=== PATIENT | male | born 1990 ===

== ENCOUNTER 2017-12-02 21:00 | Emergency (ER) | payer SELFPAY ==
[2017-12-02] MEDS ORDERED: Sulfacetamide 10 % OPTH.SOL BOTH EYES ONE (22:00)
--- NOTE | 2017-12-02 22:03 | ED ---
Throat Pain/Nasal Congestion - HPI Summary HPI Summary: 27 yr old male with bilateral yellow eye drainage for four days. He states at night he wakes up with crusty yellow eye drainage. He usually wears contact lenses, but he has not been wearing them because thought had pink eye. he has no eye pain, no FB sensation, no change in his vision. He is wearing his glasses now. - History of Current Complaint Chief Complaint: UCEye Time Seen by Provider: 12/02/17 21:46 - Allergies/Home Medications Allergies/Adverse Reactions: Allergies Allergy/AdvReac Type Severity Reaction Status Date / Time No Known Allergies Allergy Verified 12/02/17 21:45 Home Medications: Home Medications Omeprazole CAP* [Prilosec CAP* 20 MG] 20 mg PO DAILY 12/02/17 [History Confirmed 12/02/17] PMH/Surg Hx/FS Hx/Imm Hx Previously Healthy: Yes Infectious Disease History: No Infectious Disease History: Denies: Traveled Outside the [place] in Last 30 Days - Family History Known Family History: Positive: None - Social History Occupation: Employed Full-time Lives: With Family Alcohol Use: Occasionally Substance Use Type: Reports: None Smoking Status (MU): Never Smoked Tobacco Review of Systems Constitutional: Negative Positive: Drainage. Negative: Photophobia, Blurred Vision All Other Systems Reviewed And Are Negative: Yes Physical Exam Triage Information Reviewed: Yes Vital Signs On Initial Exam: Initial Vitals Temp Pulse Resp BP Pulse Ox 97.5 F 72 14 136/75 98 12/02/17 21:42 12/02/17 21:42 12/02/17 21:42 12/02/17 21:42 12/02/17 21:42 Vital Signs Reviewed: Yes Appearance: Positive: Well-Appearing, No Pain Distress Skin: Positive: Warm, Skin Color Reflects Adequate Perfusion Head/Face: Positive: Normal Head/Face Inspection Eyes: Positive: EOMI, BABATUNDE, Conjunctiva Inflammed, Discharge - yellow discharge , Other: - No photophobia ENT: Positive: Normal ENT inspection, Pharynx normal, TMs normal Neck: Positive: Supple, Nontender Respiratory/Lung Sounds: Positive: Clear to Auscultation, Breath Sounds Present Cardiovascular: Positive: RRR. Negative: Murmur Abdomen Description: Positive: Nontender Musculoskeletal: Positive: Strength/ROM Intact Neurological: Positive: Sensory/Motor Intact, Alert, Oriented to Person Place, Time, CN Intact II-III Psychiatric: Positive: Normal - Sawyer Coma Scale Best Eye Response: 4 - Spontaneous Best Motor Response: 6 - Obeys Commands Best Verbal Response: 5 - Oriented Coma Scale Total: 15 Diagnostics - Vital Signs Vital Signs Temp Pulse Resp BP Pulse Ox 12/02/17 21:42 97.5 F 72 14 136/75 98 - Laboratory Lab Statement: Any lab studies that have been ordered have been reviewed, and results considered in the medical decision making process. EENT Course/Dx - Course Course Of Treatment: 27 yr old with conjunctivitis bilateral. Plan DC on Sulfa eye drops. No contact lense use for ten days. Use drops for a week. FU with PMD referral. - Diagnoses Provider Diagnoses: Conjunctivitis Discharge - Sign-Out/Discharge Documenting (check all that apply): Discharge/Admit/Transfer - Discharge Plan Condition: Good Disposition: HOME Patient Education Materials: Conjunctivitis (ED) Referrals: Non Staff,Doctor [Primary Care Provider] - [facility] [place] [facility]FERR[facility] [Outside] Additional Instructions: Do not wear contact lenses for 10 days. Use antibiotic drops for 8 days. - Billing Disposition and Condition Condition: GOOD Disposition: HOME
== END 2017-12-02 22:13 | disposition home or self-care (01) ==
LOC: UCCORT 21:00
DX: H10.9 Unspecified conjunctivitis (principal)
CPT/HCPCS: 99202; A9270-GY; G0463